=== PATIENT | male | born 1970 | race Caucasian/White ===

== ENCOUNTER 2018-05-27 12:33 | Emergency (ER) | payer OTHER ==
[2018-05-27] MEDS ORDERED: AMOXicillin 250 MG CAP ONE (13:27)
[2018-05-27] MEDS ORDERED: Adacel (T-DAP) 0.5 ML SYRINGE ONE (13:27)
== END 2018-05-27 13:47 | disposition home or self-care (01) ==
LOC: BURERS 12:33
DX: S51.852A Open bite of left forearm, initial encounter (principal); F17.210 Nicotine dependence, cigarettes, uncomplicated; W54.0XXA Bitten by dog, initial encounter
CPT/HCPCS: 90471; 90715

== ENCOUNTER 2018-10-12 13:27 | Emergency (ER) | payer OTHER, SELFPAY ==
[2018-10-12] MEDS ORDERED: HYDROcodone/Acetaminophen 10/325 mg Tablet ONE (13:49)
[2018-10-12] MEDS ORDERED: Ibuprofen 800 MG TAB ONE (13:49)
== END 2018-10-12 14:00 | disposition home or self-care (01) ==
LOC: BURERS 13:27
DX: S76.312A Strain of muscle, fascia and tendon of the posterior muscle group at thigh level, left thigh, initial encounter (principal); S76.311A Strain of muscle, fascia and tendon of the posterior muscle group at thigh level, right thigh, initial encounter; F17.210 Nicotine dependence, cigarettes, uncomplicated; X50.9XXA Other and unspecified overexertion or strenuous movements or postures, initial encounter
CPT/HCPCS: 99283